=== PATIENT | male | born 1995 | race Caucasian/White ===

== ENCOUNTER 2022-01-29 05:56 | Emergency (ER) | payer MEDICAID, OTHER ==
[~2022-01-29] VITALS: Ht 177.8 cm; Wt 100.0 kg
[2022-01-29] MEDS ORDERED: SODIUM CHLORIDE 0.9% 1,000 ML IV ONE (06:45)
[2022-01-29 07:19] LABS: CHLORIDE 107 mEq/L (98-107)
[2022-01-29 07:26] LABS: ETHANOL BLOOD < 10 mg/dL
[2022-01-29 07:30] LABS: BASOPHILS % 0.8 % (0.0-2.0); EOSINOPHILS % 3.4 % (0.0-5.0); HEMATOCRIT. 38.2 % (42.0-52.0); HEMOGLOBIN. 13.1 g/dL (14.0-18.0); LYMPHOCYTES % 17.7 % (20.0-50.0); MEAN CORPUSCULAR HEMOGLOBIN 30.4 pg (28.0-32.0); MEAN CORPUSCULAR VOLUME 88.7 fL (80.0-94.0); MONOCYTES % 12.5 % (2.0-8.0); NEUTROPHILS % 65.6 % (40.0-76.0); PLATELET 267 x1000/uL (130-400); RED CELL DISTRIBUTION WIDTH 14.7 % (11.6-14.6)
[2022-01-29] MEDS ORDERED: DEXTROSE 50% WATER 50ML SYRINGE IV NR ×2 (07:45→17:30)
[2022-01-29 08:15] LABS: *AMPHETAMINES SCREEN URINE NEGATIVE (NEGATIVE); *BARBITURATES SCREEN URINE NEGATIVE (NEGATIVE); *BENZODIAZEPINES SCREEN URINE NEGATIVE (NEGATIVE); *COCAINE SCREEN URINE NEGATIVE (NEGATIVE); CANNABINOID URINE SCREEN NEGATIVE (NEGATIVE); METHADONE URINE SCREEN NEGATIVE (NEGATIVE); OPIATES URINE SCREEN NEGATIVE (NEGATIVE); PHENCYCLIDINE URINE SCREEN NEGATIVE (NEGATIVE)
[2022-01-30] MEDS ORDERED: OLANZAPINE 10 MG/VIAL IM ONE ×2 (00:15→17:45)
[2022-01-30] MEDS: OLANZAPINE 5MG TABLET ODT PO SCH (13:14)
[2022-01-30] MEDS ORDERED: LORAZEPAM 2MG/ML CPJ IM ONE (17:45)
[2022-01-30] MEDS ORDERED: DIPHENHYDRAMINE 50MG/ML VIAL IM ONE (17:45)
[2022-01-30] MEDS ORDERED: LORAZEPAM 2MG/ML CPJ IM NR (20:15)
[2022-01-30] MEDS ORDERED: OLANZAPINE 10 MG/VIAL IM NR (20:30)
[2022-01-30] MEDS ORDERED: DIPHENHYDRAMINE 50MG/ML VIAL IM NR (20:30)
[2022-01-31] MEDS: OLANZAPINE 5MG TABLET ODT PO SCH ×3 (17:27→20:12)
[2022-01-31] MEDS ORDERED: DIPHENHYDRAMINE 50MG/ML VIAL IM ONE (21:00)
[2022-02-01] MEDS ORDERED: OLANZAPINE 10 MG/VIAL IM NR (01:30)
[2022-02-01] MEDS: OLANZAPINE 5MG TABLET ODT PO SCH ×2 (08:57→22:38)
[2022-02-02] MEDS: OLANZAPINE 5MG TABLET ODT PO SCH (08:22)
[2022-02-02 13:19] VITALS: BP 127/97
== END 2022-02-02 13:36 ==
LOC: EDBD 05:56 → ER 05:56
DX: F23 Brief psychotic disorder (principal); R41.82 Altered mental status, unspecified; I10 Essential (primary) hypertension; F17.290 Nicotine dependence, other tobacco product, uncomplicated
CPT/HCPCS: 36415; 70450; 80053; 80305; 80307; 80320; 80329; 82962; 85025; 96361; 96372; 96374; 99285; J1200; J2060; J3490; J7030; G0480